=== PATIENT | female | born 1955 | race Caucasian/White ===

== ENCOUNTER 2017-07-31 12:03 | Emergency (ER) | payer OTHER ==
[~2017-07-31] VITALS: Ht 165.1 cm; Wt 72.6 kg
[~2017-07-31 12:03] MED LIST: COUMADIN3 M1 PO; CYMBALTA60 MG PO; DIABETA5 MG PO; FOSAMAX70 MG PO; HYDROCODONE BIT1 T11 PO; LEVEMIR100 U/ML SC; LIPITOR10 MG PO; LIPITOR40 MG PO; LOPID600 MG PO; LOPRESSOR50 MG PO; METFORMIN1000 MG PO; MICRONASE5 MG PO; NEXIUM40 MG PO; OS-CAL 500 + D1 TAB PO; PERCOCET 325 MG1 TA2 PO; PLAVIX75 MG PO; TYLENOL325 M1 PO; VICODIN 5/500 505 MG PO; XANAX0.5 MG PO; ZESTRIL2.5 MG PO
[2017-07-31 12:53] LABS: BASO % 0.2 % (0.0-1.0); EOS % 0.1 % (1.0-4.0); HEMATOCRIT 39.8 % (37.0-47.0); LYMPH # 1.3 10*3/uL (1.3-4.4); LYMPH % 7.7 % (27.0-41.0); MEAN CELL VOLUME 100.8 fl (81.0-99.0); MEAN CORPUSCULAR HGB 30.4 pg (27.0-31.0); MEAN CORPUSCULAR HGB CONC 30.2 g/dl (33.0-37.0); MEAN PLATELET VOLUME 12.6 fl (9.6-12.3); MONO # 1.1 10*3/uL (0.1-1.0); MONO % 6.6 % (3.0-9.0); NEUT # 13.9 10*3/uL (2.3-7.9); NEUT % 84.1 % (47.0-73.0); PLATELET COUNT AUTOMATED 194 10*3/uL (130-400); RED BLOOD COUNT 3.95 10*6/uL (4.10-5.10); RED CELL DISTRI WIDTH 17.7 % (0-14.5); WHITE BLOOD COUNT 16.5 10*3/uL (4.8-10.8)
[2017-07-31 13:01] LABS: INTERNATIONAL NORM RATIO 1.5 (2.0-3.5)
[2017-07-31 13:09] LABS: ALBUMIN 2.2 gm/dl (3.1-4.5); CREATININE 4.23 mg/dL (0.55-1.02); POTASSIUM 4.5 mmol/L (3.5-5.1); TOTAL PROTEIN 6.7 gm/dL (6.4-8.2)
[2017-07-31 15:58] LABS: BILIRUBIN 2+ (NEGATIVE); BLOOD 2+ (NEGATIVE); CLARITY CLOUDY (CLEAR); COLOR BROWN (YELLOW); GLUCOSE 1+ (NEGATIVE); KETONE TRACE (NEGATIVE); NITRITE POSITIVE (NEGATIVE)
[2017-07-31 16:00] LABS: LEUKO ESTERASE NEGATIVE (NEGATIVE)
[2017-07-31 16:11] LABS: RBC TNTC rbc/hpf (0-2)
== END 2017-07-31 16:15 | disposition short-term general hospital (02) ==
LOC: ED 12:03
PROVIDERS: Emergency Medicine
DX: R41.82 Altered mental status, unspecified (principal); N18.9 Chronic kidney disease, unspecified; I48.91 Unspecified atrial fibrillation; Z90.710 Acquired absence of both cervix and uterus; Z90.49 Acquired absence of other specified parts of digestive tract; Z98.890 Other specified postprocedural states; Z79.899 Other long term (current) drug therapy; Z79.4 Long term (current) use of insulin; Z79.01 Long term (current) use of anticoagulants; Z99.2 Dependence on renal dialysis

== ENCOUNTER 2017-09-02 11:20 | Emergency (ER) | payer MEDICARE ==
[~2017-09-02] VITALS: Ht 149.8 cm; Wt 45.4 kg
== END 2017-09-02 11:42 | disposition expired ==
LOC: ED 11:20
DX: I46.9 Cardiac arrest, cause unspecified (principal); E11.9 Type 2 diabetes mellitus without complications; I48.91 Unspecified atrial fibrillation; Z90.710 Acquired absence of both cervix and uterus; Z98.890 Other specified postprocedural states; Z90.49 Acquired absence of other specified parts of digestive tract; Z79.4 Long term (current) use of insulin; Z79.01 Long term (current) use of anticoagulants; Z79.899 Other long term (current) drug therapy